=== PATIENT | female | born 1970 | race Caucasian/White ===

== ENCOUNTER 2020-09-03 16:32 | Inpatient (IN) ==
[2020-09-03] MEDS ORDERED: DICYCLOMINE HCL 20 MG PO PRN (23:45)
[2020-09-04] MEDS: traZODone 50 MG TABLET PO SCH ×2 (00:35→21:50)
[2020-09-04] MEDS: Ondansetron ODT 4 MG TAB.RAPDIS PO PRN ×3 (02:22→17:54)
[2020-09-04] MEDS ORDERED: Divalproex (12 HR) 500 MG TABLET PO SCH (09:00)
[2020-09-04] MEDS ORDERED: Cyanocobalamin (B-12) 1,000 MCG/ML VIAL IM SCH (09:00)
[2020-09-04] MEDS: Furosemide 40 MG TABLET PO SCH ×2 (09:30→21:50)
[2020-09-04] MEDS: FLUoxetine 20 MG CAPSULE PO SCH (09:30)
[2020-09-04] MEDS: Vancomycin Oral Soln 125 MG/2.5 ML UDC PO SCH ×4 (09:30→21:50)
[2020-09-04] MEDS: Aspirin 81 MG TAB.CHEW PO SCH (09:30)
[2020-09-04] MEDS: Divalproex (12 HR) 250 MG TABLET PO SCH ×2 (11:43→17:54)
[2020-09-04] MEDS: Acetaminophen 325 MG TABLET PO PRN (13:56)
[2020-09-04] MEDS ORDERED: Ibuprofen 600 MG TABLET PO SCH (16:00)
[2020-09-04] MEDS: SUMAtriptan succinate 25 MG TABLET PO PRN (19:58)
[2020-09-04] MEDS: *HR* HYDROcodone/Acet 5/325 mg TABLET PO PRN (21:49)
[2020-09-05] MEDS: Ondansetron ODT 4 MG TAB.RAPDIS PO PRN ×2 (00:08→21:29)
[2020-09-05] MEDS: Acetaminophen 325 MG TABLET PO PRN (00:08)
[2020-09-05] MEDS: *HR* HYDROcodone/Acet 5/325 mg TABLET PO PRN ×3 (05:14→21:29)
[2020-09-05] MEDS ORDERED: *HR* Dextrose 50 % in Water (Vial) 50 ML VIAL IVP PRN (05:18)
[2020-09-05] MEDS ORDERED: D5% in Water 1,000 ML IVC PRN (05:18)
[2020-09-05] MEDS ORDERED: Dextrose Gel 15 GM/37.5 ML TUBE PO PRN ×2 (05:18)
[2020-09-05 06:53] LABS: Basophils # 0.1 K/mcL (0.0-0.2); Eosinophils # 0.2 K/mcL (0.0-0.6); Eosinophils % 3.5 %; Hematocrit 27.7 % (35.3-44.9); Hemoglobin 8.3 g/dL (11.5-15.4); Immature Granulocytes % 2.6 % (0-4); Lymphocytes # 1.7 K/mcL (0.6-4.6); Lymphocytes % 33.6 %; Mean Corpuscular Hemoglobin 25.8 pg (28.0-33.3); Mean Platelet Volume 8.9 fL (9.4-12.4); Monocytes # 0.7 K/mcL (0.0-1.3); Monocytes % 12.8 %; Neutrophils # 2.4 K/mcL (1.6-8.9); Platelet Count 347 K/mcL (140-400); Red Blood Count 3.22 M/mcL (3.82-4.97); Red Cell Distribution Width 19.7 % (11.5-14.5); Segmented Neutrophils % 46.5 %; White Blood Count 5.1 K/mcL (4.3-11.1)
[2020-09-05 07:08] LABS: BUN/Creatinine Ratio 12 (6-26); Blood Urea Nitrogen 10 mg/dL (6-20); Calcium 7.9 mg/dL (8.6-10.3); Carbon Dioxide 27 mEq/L (23-29); Chloride 104 mEq/L (98-107); Glucose 93 mg/dL (70-105); Osmolality,Calculated 285 (280-300); Sodium 138 mEq/L (136-145); eGFR For African Americans > 60 (> 60); eGFR For Non-African Americans > 60 (> 60)
[2020-09-05] MEDS: Aspirin 81 MG TAB.CHEW PO SCH (08:48)
[2020-09-05] MEDS: Divalproex (12 HR) 250 MG TABLET PO SCH ×2 (08:48→17:41)
[2020-09-05] MEDS: Vancomycin Oral Soln 125 MG/2.5 ML UDC PO SCH ×4 (08:48→21:16)
[2020-09-05] MEDS: FLUoxetine 20 MG CAPSULE PO SCH (08:48)
[2020-09-05] MEDS: Furosemide 40 MG TABLET PO SCH ×2 (08:49→21:15)
[2020-09-05] MEDS: SUMAtriptan succinate 25 MG TABLET PO PRN ×2 (08:59→21:29)
[2020-09-05] MEDS: traZODone 50 MG TABLET PO SCH (21:15)
[2020-09-06] MEDS: Ondansetron ODT 4 MG TAB.RAPDIS PO PRN ×2 (04:24→20:11)
[2020-09-06] MEDS: *HR* HYDROcodone/Acet 5/325 mg TABLET PO PRN ×3 (04:24→20:06)
[2020-09-06] MEDS: Divalproex (12 HR) 250 MG TABLET PO SCH ×2 (08:19→16:44)
[2020-09-06] MEDS: Aspirin 81 MG TAB.CHEW PO SCH (08:19)
[2020-09-06] MEDS: Vancomycin Oral Soln 125 MG/2.5 ML UDC PO SCH ×4 (08:19→20:05)
[2020-09-06] MEDS: Furosemide 40 MG TABLET PO SCH ×2 (08:20→20:05)
[2020-09-06] MEDS: FLUoxetine 20 MG CAPSULE PO SCH (08:20)
[2020-09-06] MEDS: SUMAtriptan succinate 25 MG TABLET PO PRN (18:24)
[2020-09-06] MEDS: traZODone 50 MG TABLET PO SCH (20:06)
[2020-09-07] MEDS: SUMAtriptan succinate 25 MG TABLET PO PRN ×3 (01:29→21:08)
[2020-09-07] MEDS: *HR* HYDROcodone/Acet 5/325 mg TABLET PO PRN ×3 (04:07→16:56)
[2020-09-07] MEDS: Aspirin 81 MG TAB.CHEW PO SCH (08:30)
[2020-09-07] MEDS: FLUoxetine 20 MG CAPSULE PO SCH (08:30)
[2020-09-07] MEDS: Divalproex (12 HR) 250 MG TABLET PO SCH ×2 (08:30→16:55)
[2020-09-07] MEDS: Vancomycin Oral Soln 125 MG/2.5 ML UDC PO SCH (08:31)
[2020-09-07] MEDS: Furosemide 40 MG TABLET PO SCH ×3 (08:35→16:56)
[2020-09-07] MEDS: Ondansetron ODT 4 MG TAB.RAPDIS PO PRN ×2 (10:33→21:10)
[2020-09-07] MEDS: traZODone 50 MG TABLET PO SCH (21:07)
[2020-09-08] MEDS: Furosemide 40 MG TABLET PO SCH ×2 (08:55→16:45)
[2020-09-08] MEDS: FLUoxetine 20 MG CAPSULE PO SCH (08:55)
[2020-09-08] MEDS: Aspirin 81 MG TAB.CHEW PO SCH (08:55)
[2020-09-08] MEDS: Divalproex (12 HR) 250 MG TABLET PO SCH ×2 (08:55→21:13)
[2020-09-08] MEDS: Ondansetron ODT 4 MG TAB.RAPDIS PO PRN ×2 (10:46→16:49)
[2020-09-08] MEDS: SUMAtriptan succinate 25 MG TABLET PO PRN ×2 (10:47→21:14)
[2020-09-08] MEDS: *HR* HYDROcodone/Acet 5/325 mg TABLET PO PRN (16:48)
[2020-09-08] MEDS: traZODone 50 MG TABLET PO SCH (21:14)
[2020-09-09] MEDS: Ondansetron ODT 4 MG TAB.RAPDIS PO PRN ×4 (00:04→21:30)
[2020-09-09] MEDS: *HR* HYDROcodone/Acet 5/325 mg TABLET PO PRN ×4 (00:04→21:30)
[2020-09-09 06:37] LABS: Hematocrit 26.1 % (35.3-44.9); Hemoglobin 7.9 g/dL (11.5-15.4); Mean Corpuscular HGB Conc 30.3 g/dL (31.6-35.5); Mean Corpuscular Hemoglobin 26.2 pg (28.0-33.3); Mean Corpuscular Volume 86.4 fL (83.0-100.0); Mean Platelet Volume 8.8 fL (9.4-12.4); Platelet Count 313 K/mcL (140-400); Red Blood Count 3.02 M/mcL (3.82-4.97); Red Cell Distribution Width 18.9 % (11.5-14.5); White Blood Count 5.8 K/mcL (4.3-11.1)
[2020-09-09 06:55] LABS: BUN/Creatinine Ratio 15 (6-26); Blood Urea Nitrogen 13 mg/dL (6-20); Calcium 8.3 mg/dL (8.6-10.3); Carbon Dioxide 32 mEq/L (23-29); Chloride 101 mEq/L (98-107); Glucose 86 mg/dL (70-105); Osmolality,Calculated 287 (280-300); Potassium 3.8 mEq/L (3.5-5.1); Sodium 139 mEq/L (136-145); eGFR For African Americans > 60 (> 60); eGFR For Non-African Americans > 60 (> 60)
[2020-09-09] MEDS: Divalproex (12 HR) 250 MG TABLET PO SCH ×2 (10:13→21:29)
[2020-09-09] MEDS: Furosemide 40 MG TABLET PO SCH ×2 (10:13→17:10)
[2020-09-09] MEDS: Aspirin 81 MG TAB.CHEW PO SCH (10:14)
[2020-09-09] MEDS: FLUoxetine 20 MG CAPSULE PO SCH (10:14)
[2020-09-09] MEDS: SUMAtriptan succinate 25 MG TABLET PO PRN ×2 (10:14→21:30)
[2020-09-09] MEDS: Gabapentin 300 MG CAPSULE PO SCH (21:29)
[2020-09-09] MEDS: traZODone 50 MG TABLET PO SCH (21:31)
[2020-09-10] MEDS: SUMAtriptan succinate 25 MG TABLET PO PRN ×2 (05:43→18:10)
[2020-09-10] MEDS: Furosemide 40 MG TABLET PO SCH ×2 (08:31→17:52)
[2020-09-10] MEDS: Divalproex (12 HR) 250 MG TABLET PO SCH ×2 (08:31→21:40)
[2020-09-10] MEDS: Aspirin 81 MG TAB.CHEW PO SCH (08:31)
[2020-09-10] MEDS: FLUoxetine 20 MG CAPSULE PO SCH (08:32)
[2020-09-10] MEDS: *HR* HYDROcodone/Acet 5/325 mg TABLET PO PRN (08:42)
[2020-09-10 15:18] LABS: Hematocrit 27.7 % (35.3-44.9); Hemoglobin 8.5 g/dL (11.5-15.4); Mean Corpuscular HGB Conc 30.7 g/dL (31.6-35.5); Mean Corpuscular Hemoglobin 26.5 pg (28.0-33.3); Mean Corpuscular Volume 86.3 fL (83.0-100.0); Mean Platelet Volume 8.6 fL (9.4-12.4); Platelet Count 307 K/mcL (140-400); Red Blood Count 3.21 M/mcL (3.82-4.97); Red Cell Distribution Width 18.7 % (11.5-14.5); White Blood Count 6.9 K/mcL (4.3-11.1)
[2020-09-10] MEDS: Ondansetron ODT 4 MG TAB.RAPDIS PO PRN (17:52)
[2020-09-10] MEDS: Gabapentin 300 MG CAPSULE PO SCH (21:41)
[2020-09-10] MEDS: traZODone 50 MG TABLET PO SCH (21:41)
[2020-09-11] MEDS: SUMAtriptan succinate 25 MG TABLET PO PRN (05:52)
[2020-09-11 07:50] VITALS: BP 118/74
[2020-09-11] MEDS: Aspirin 81 MG TAB.CHEW PO SCH (10:09)
[2020-09-11] MEDS: Divalproex (12 HR) 250 MG TABLET PO SCH (10:09)
[2020-09-11] MEDS: Furosemide 40 MG TABLET PO SCH (10:09)
[2020-09-11] MEDS: FLUoxetine 20 MG CAPSULE PO SCH (10:10)
[2020-09-13 02:37] LABS: Amphetamines NEGATIVE ng/mL (Cutoff 20); Barbiturates NEGATIVE ng/mL (Cutoff 50); Benzodiazepines NEGATIVE ng/mL (Cutoff 50); Buprenorphine NEGATIVE ng/mL (Cutoff 1); Cocaine NEGATIVE ng/mL (Cutoff 20); Methadone NEGATIVE ng/mL (Cutoff 25); Methamphetamines NEGATIVE ng/mL (Cutoff 20); Opiates NEGATIVE ng/mL (Cutoff 20); Phencyclidine NEGATIVE ng/mL (Cutoff 10)
== END 2020-09-11 12:45 | disposition home health service (06) | DRG 57 ==
LOC: INPPIK 22:03
PROVIDERS: ADMIT Family Medicine; ATTEND Family Medicine